=== PATIENT | male | born 1955 | race Caucasian/White ===

== ENCOUNTER → 2025-01-05 08:10 | Outpatient (REF) | payer OTHER, SELFPAY | LOC: RST 08:10 | PROVIDERS: ATTENDING PHYSICIAN Student in an Organized Health Care Education/Training Program; FAMILY PHYSICIAN Family Medicine Adult Medicine | DX: R13.13 Dysphagia, pharyngeal phase (principal) | CPT/HCPCS: 74230; 92611 ==

== ENCOUNTER → 2025-02-03 09:40 | Outpatient (REF) | payer OTHER, SELFPAY | LOC: RAD 09:40 | PROVIDERS: ATTENDING PHYSICIAN Student in an Organized Health Care Education/Training Program; FAMILY PHYSICIAN Family Medicine Adult Medicine | DX: R13.13 Dysphagia, pharyngeal phase (principal); Z85.850 Personal history of malignant neoplasm of thyroid | CPT/HCPCS: 70491; 74210; Q9967 ==

== ENCOUNTER 2025-02-18 07:20 | Outpatient (RCR) | payer OTHER, SELFPAY | END 2025-02-18 23:59 | disposition home or self-care (01) | LOC: RST 07:20 | PROVIDERS: ATTENDING PHYSICIAN Student in an Organized Health Care Education/Training Program; PRIMARYCARE PHYSICIAN Family Medicine Adult Medicine | DX: R13.13 Dysphagia, pharyngeal phase (principal); M54.2 Cervicalgia; Z85.850 Personal history of malignant neoplasm of thyroid; J38.3 Other diseases of vocal cords; R49.0 Dysphonia | CPT/HCPCS: 92507; 92524; 92526; 92610 ==